=== PATIENT | male | born 1955 | race Caucasian/White ===

== ENCOUNTER 2019-06-05 07:15 | Day surgery (SDC) | payer BC ==
[2019-06-05] MEDS ORDERED: PROPOFOL 10 MG/ML VIAL IV ONE (07:16)
[2019-06-05] MEDS ORDERED: LIDOCAINE 2% MDV (20MG/ML) 20ML VIAL IV ONE (07:16)
[2019-06-05] MEDS ORDERED: ONDANSETRON HCL IV 4 MG/2 ML VIAL IVP ONE (07:16)
[2019-06-05] MEDS ORDERED: MIDAZOLAM HCL 2MG/2ML VIAL IV ONE (07:16)
[2019-06-05] MEDS ORDERED: FENTANYL PF 100MCG/2ML VIAL IV ONE (07:16)
[2019-06-05] MEDS ORDERED: DEXAMETHASONE 4 MG/ML 1ML VIAL IVP ONE (07:16)
[2019-06-05] MEDS ORDERED: ACETAMINOPHEN 1,000 MG/100 ML BTL IVPB ONE (07:30)
[2019-06-05] MEDS ORDERED: RINGERS SOLUTION,LACTATED 1,000 ML IV ONE ×2 (07:48→09:29)
[2019-06-05] MEDS ORDERED: BUPIVACAINE 0.25% W/EPI MPF 30ML VIAL SQ ONE ×2 (09:08)
--- NOTE | 2019-06-06 12:40 | Operative Note ---
DATE OF SURGERY: 06/05/2019 SURGEON: Rio Emery DO PREOPERATIVE DIAGNOSIS: Perianal mass. POSTOPERATIVE DIAGNOSIS: Perianal mass. OPERATION: Wide excision of perianal mass. INDICATION: The patient is a 64-year-old male who presented with what appeared to be a seborrheic keratosis just outside his right perianal region. We did discuss excision. Risks, benefits, and alternatives were discussed. Risks include bleeding, infection, recurrence, need for delayed or repeat operation. He understood this fully. Thereafter, consent was signed and questions answered. PROCEDURE: The patient was taken to the operating room and placed in a supine position. General anesthesia was administered per the department of anesthesia. The patient was rotated into the lithotomy position. His perianal region was prepped and draped in the usual fashion. The area around the mass was anesthetized with a total of 10 mL of 0.25% Sensorcaine with epinephrine. Elliptical incision was made around the mass. This was carried down to subcutaneous tissue with cautery. This was then fully excised and passed off the field. This measured 3 x 2 cm in to the subcu. This wound was left open secondary to the location. I will see him back on an as-needed basis or sooner if any problems arise. Thank you for this referral. JOESPH
== END 2019-06-05 10:22 | disposition home or self-care (01) ==
LOC: SUR 07:15
PROVIDERS: ATTEND Surgery
DX: R22.2 Localized swelling, mass and lump, trunk (principal); I10 Essential (primary) hypertension; J45.909 Unspecified asthma, uncomplicated; F17.210 Nicotine dependence, cigarettes, uncomplicated
CPT/HCPCS: 11404; 00400; J2405; J3010; J7120